=== PATIENT | male | born 2000 | race African-American/Black ===

== ENCOUNTER 2021-07-18 20:47 | Emergency (ER) | payer MEDICAID, OTHER, SELFPAY ==
--- NOTE | ~2021-07-18 | XR_ITS ---
EXAMINATION: XR RIBS, LEFT CLINICAL INFORMATION: Pain post fall COMPARISON: None TECHNIQUE: Frontal view of the chest with 3 additional oblique views of the left ribs were obtained. FINDINGS: Lungs are clear. No consolidation, pneumothorax, or pleural effusion. The cardiomediastinal silhouette and pulmonary vasculature are normal. Osseous structures are unremarkable. Ribs are intact. No fractures are identified. XR/XR ribs LT min 3V w CXR1V IMPRESSION: No displaced rib fracture seen.
[2021-07-18 21:16] VITALS: BP 122/73; PULSE 97; RESP 18; TEMP 36.6; O2SAT 98; BMI 25.8
--- NOTE | 2021-07-18 22:12 | ED_ITS ---
HPI - Fall General Chief Complaint: Fall Stated Complaint: rib inj Time Seen by Provider: 07/18/21 22:04 Source: patient Mode of arrival: ambulatory Limitations: no limitations History of Present Illness HPI Narrative: Patient while walking fell into a Pew while walking hitting his left lower ribs complaining of pain in the left lower ribs especially when taking a deep breath no other injuries no abdominal pain no nausea no vomiting Related Data Previous Rx's Medication Instructions Recorded ibuprofen 600 mg tablet 600 mg PO Q6H PRN #20 tab 07/18/21 Allergies Allergy/AdvReac Type Severity Reaction Status Date / Time No Known Allergies Allergy Verified 07/18/21 21:20 Review of Systems Review of Systems: Yes all other systems are reviewed and are negative [facility] Past Medical History Medical History No known health problems Social History Social History Advance Directives: No Physical Exam Vital Signs: Vital Signs: Last Vital Signs Temp 97.8 F 07/18/21 21:16 Pulse 97 07/18/21 21:16 Resp 18 07/18/21 21:16 BP 122/73 07/18/21 21:16 Pulse Ox 98 07/18/21 21:16 Body Mass Index 25.8 Const: General: comfortable and no acute distress Orientation/consciousness: patient oriented x3 HENMT: Head: Yes normocephalic and Yes atraumatic Eyes: General: appearance normal, both eyes and all related structures Neck: Neck: Yes full ROM Chest: Chest palpation & inspection: normal inspection of the chest Chest/axillae images: 1. Tenderness in left anterior chest lower ribs no crepitus no ecchymosis Resp: Effort & Inspection: normal respiratory effort and able to speak in complete sentences Auscultation: clear to auscultation bilaterally Cardio: Jugular venous distension: no JVD Palpation: normal PMI Rate: regular rate Rhythm: regular rhythm Heart sounds: S1 normal heart sound present and S2 normal heart sound present GI: Inspection: Yes normal to inspection Palpation (GI): Soft to palpation and nontender Auscultation: normal bowel sounds : General: Yes no CVA tenderness Back/Spine/Pelvis: Back: no CVA tenderness Thoracic/Lumbar Spine: No thoracic spinal tenderness and No lumbar spinal tenderness Skin: General skin exam: no rashes or lesions noted Neuro: General: patient oriented x3 and gait normal Procedures FAST Exam FAST Exam 1: Fluid in Morison's pouch: No Fluid around bladder, Sagittal view: No Fluid in Pericardial Sac: No Gross Wall Motion Abnormality: No Study normal for this patient: Yes Images saved for further review: No MDM - Fall MDM Narrative Medical decision making narrative: Left rib x-ray negative for fracture fast and negative for any splenic injury. Patient will be discharged on ibuprofen for left rib contusion Discharge Plan Discharge Clinical Impression: Contusion of rib on left side Qualifiers: Encounter type: initial encounter Qualified Code(s): S20.212A - Contusion of left front wall of thorax, initial encounter Patient Disposition: Home, Self-Care Instructions: Rib Contusion (ED) Additional Instructions: Apply ice take ibuprofen for pain Report to the ER if worsening of the pain/shortness of breath Aplique hielo, tome ibuprofeno para el dolor. Informe a la reina de emergencias si el dolor o la dificultad para respirar empeoran Prescriptions: New ibuprofen 600 mg tablet 600 mg PO Q6H PRN (Reason: pain) Qty: 20 RF: 0 Interventions: ED Discharge Assessment Last Done: 07/18/21 22:45 Discharge Date/Time: 07/18/21 22:45 Print Language: Faroese
[2021-07-18] MEDS: oxyCODONE HCl Immed Release 5 MG TABLET PO (22:39)
== END 2021-07-18 22:45 | disposition home or self-care (01) ==
PROVIDERS: Emergency Provider Internal Medicine
DX: S20.212A Contusion of left front wall of thorax, initial encounter (principal); R07.81 Pleurodynia; W01.190A Fall on same level from slipping, tripping and stumbling with subsequent striking against furniture, initial encounter; Y93.9 Activity, unspecified; Y92.9 Unspecified place or not applicable; Y99.9 Unspecified external cause status
CPT/HCPCS: 71101; 99284

== ENCOUNTER 2021-08-14 11:48 | Emergency (ER) | payer MEDICAID, OTHER, SELFPAY ==
[2021-08-14 12:26] VITALS: BP 136/81; PULSE 58; RESP 16; TEMP 36.9; O2SAT 99; BMI 29.0
--- NOTE | 2021-08-14 12:59 | ED_ITS ---
HPI - General Adult General Chief complaint: General Medical Stated complaint: RIB PAIN Time Seen by Provider: 08/14/21 12:43 Source: patient Mode of arrival: ambulatory Limitations: no limitations History of Present Illness HPI narrative: Patient complaining of painin left lower ribs in the front for last 1 month no history of injury had x-ray done which is negative comes back as pain still there when he palpate no shortness of breath no cough no trauma Related Data Previous Rx's Medication Instructions Recorded ibuprofen 600 mg tablet 600 mg PO Q6H PRN #20 tab 07/18/21 ibuprofen 600 mg tablet 600 mg PO Q6H PRN #40 tab 08/14/21 Allergies Allergy/AdvReac Type Severity Reaction Status Date / Time No Known Allergies Allergy Verified 07/18/21 21:20 Review of Systems Review of Systems: Yes all other systems are reviewed and are negative PMFSH Past Medical History Medical History No known health problems Social History Social History Advance Directives: No Advance Directives Information Provided: No Physical Exam Vital Signs: Vital Signs: Last Vital Signs Temp 98.5 F 08/14/21 12:26 Pulse 58 08/14/21 12:26 Resp 16 08/14/21 12:26 BP 136/81 08/14/21 12:26 Pulse Ox 99 08/14/21 12:26 Body Mass Index 29.0 Const: General: comfortable and no acute distress Chest: Chest palpation & inspection: normal inspection of the chest Chest/axillae images: 1. Tender left costal cartilage no deformity no ecchymosis lungs are clear Resp: Effort & Inspection: normal respiratory effort Auscultation: clear to auscultation bilaterally Cardio: Rate: regular rate Rhythm: regular rhythm Heart sounds: S1 normal heart sound present and S2 normal heart sound present Medical Decision Making [facility] Narrative Medical decision making narrative: Patient with left costal cartilage tenderness with a previous x-ray negative like inflammatory discharge patient home on ibuprofen Discharge Plan Discharge Clinical Impression: Costochondral chest pain Patient Disposition: Home, Self-Care Instructions: Costochondritis (ED) Additional Instructions: Apply ice Pain medication as advised Prescriptions: New ibuprofen 600 mg tablet 600 mg PO Q6H PRN (Reason: pain) Qty: 40 RF: 0 No Action ibuprofen 600 mg tablet 600 mg PO Q6H PRN (Reason: pain) Qty: 20 RF: 0 Interventions: ED Discharge Assessment Last Done: 08/14/21 13:16 Discharge Date/Time: 08/14/21 13:16 Print Language: Kyrgyz
[2021-08-14] MEDS: Ibuprofen 600 MG TABLET PO (13:01)
== END 2021-08-14 13:16 | disposition home or self-care (01) ==
PROVIDERS: Emergency Provider Internal Medicine
DX: R07.81 Pleurodynia (principal); Z79.899 Other long term (current) drug therapy
CPT/HCPCS: 99283